=== PATIENT | male | born 1965 | race Caucasian/White ===

== ENCOUNTER 2020-08-03 12:48 | Emergency (ER) | payer MEDICAID, OTHER ==
[~2020-08-03] VITALS: Ht 180.3 cm; Wt 89.4 kg
[~2020-08-03 12:48] MED LIST: ENAL5TAB34 PO; ESCI10TA PO; ESOM40EC PO; LACT10SY; PROM25TA27 PO
[2020-08-03 13:08] VITALS: BP 143/77
--- NOTE | 2020-08-03 13:24 | NUR ---
54 YEAR OLD MALE COMPLAINS OF BILATERAL LEG SWELLING X 3 MONTHS. 10/10 CONTINUOUS PAIN, BILATREAL LEGS, DOES NOT RADIATE. BLE +2 PITTING EDEMA, WARM, NO DRAINAGE. LEFT LEG APPARENT CELLULITUS, DARK BROWN, HARD SKIN. OPEN LESION, WOUND BED 100% PINK, NO DRAINAGE. PEDAL PULSES PRESENT, <3 SECONDS CAP REFILL. AO4, BREATHING EVEN AND UNLABORED, SKIN WARM AND DRY. BED IN LOWEST POSITION, LOCKED, X1 SIDERAIL UP. PMH - HTN, CHF, LIVER CIRRHOSIS, STROKE (LEFT SIDED WEAKNESS) NKA
[2020-08-03 14:59] VITALS: BP 143/77
--- NOTE | 2020-08-03 15:00 | NUR ---
Patient discharged with v/s stable. Written and verbal after care instructions ABOUT VENOUS STASIS AND CHRONIC VENOUS INSUFFICIENCY given and explained. Patient verbalized understanding. Ambulatory with steady gait. All questions addressed prior to discharge. Advised to follow up with PMD.
== END 2020-08-03 15:00 | disposition home or self-care (01) ==
LOC: MED 12:48
DX: I87.2 Venous insufficiency (chronic) (peripheral) (principal); I10 Essential (primary) hypertension; F17.200 Nicotine dependence, unspecified, uncomplicated; Z86.73 Personal history of transient ischemic attack (TIA), and cerebral infarction without residual deficits; Z79.899 Other long term (current) drug therapy; Z98.890 Other specified postprocedural states
CPT/HCPCS: 93971; 99284